=== PATIENT | female | born 1995 | race Caucasian/White ===

== ENCOUNTER 2016-06-25 10:54 | Emergency (ER) | payer OTHER ==
[2016-06-25 11:47] VITALS: BP 96/61; PULSE 58; TEMP 97.8; BMI 23.3
--- NOTE | 2016-06-25 12:34 | PDOC ---
Post Exposure HPI - General Chief Complaint: Blood/Body Fluid Exposure SJR Stated Complaint: BODILY FLUID EXPOSURE Time Seen by Provider: 06/25/16 12:02 - History of Present Illness Initial Comments: 06/25/16 12:30 CHIEF COMPLAINT: 20 yo F with no PMH presents to fast track s/p exposure to bodily fluid at work. 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 She felt a drop of blood to the inner corner of her eye and was not sure if she was exposed to her eye. HISTORY OF PRESENT ILLNESS: No recent travel or sick contacts. PAST MEDICAL HISTORY: Denies past medical history FAMILY HISTORY: Denies SOCIAL HISTORY: Denies tobacco, alcohol, illicit drug use. SURGICAL HISTORY: Denies ALLERGIES: No known drug allergies REVIEW OF SYSTEMS General/Constitutional: Denies fever or chills. Denies weakness, weight change. HEENT: "I might have gotten exposed to blood to my eye." Denies change in vision. Denies ear pain or discharge. Denies sore throat. Skin: "Blood splashed onto my face." PHYSICAL EXAM General Appearance: Well-appearing, appropriately dressed. No apparent distress. HEENT: EOMI, PERRLA, normal ENT inspection, normal voice, TMs normal, pharynx normal. No conjunctival pallor. No photophobia, scleral icterus. Respiratory/Chest: Lungs CTAB. Cardiovascular: RRR. S1, S2. Integumentary: Appropriate color, dry, warm. 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 Fully oriented, alert. Appropriate mood/affect. No appreciable EOM palsy, facial droop or sensory deficit. 06/25/16 12:52 Past History - Past Medical History Allergies/Adverse Reactions: Allergies No Known Allergies Allergy (Verified 06/25/16 11:41) Home Medications: Ambulatory Orders NK [No Known Home Medication] 06/25/16 - Social History Smoking Status: Never smoked *Physical Exam - Vital Signs Last Vital Signs Temp Pulse Resp BP Pulse Ox 97.8 F 58 L 14 96/61 98 06/25/16 11:42 06/25/16 11:42 06/25/16 11:42 06/25/16 11:42 06/25/16 11:42 Medical Decision Making - Medical Decision Making 06/25/16 12:54 20 yo F with no PMH presents to fast track s/p possible exposure to bodily fluid while working. Discussed with OR and investigated source of bodily fluids this patient may have been exposed to. There is no history of any HIV or hepatitis in patient history; however there is no documented evidence the patient is negative either. Given history, risk of infection is very low. Discussed with patient, she states she would not like to start PEP. Will test for Hep C and HIV. Patient to follow up with employee health for results. Patient verbalized understanding and agrees to plan. *DC/Admit/Observation/Transfer Diagnosis at time of Disposition: Exposure to blood or body fluid - Discharge Dispostion Disposition: HOME Condition at time of disposition: Stable Admit: No - Referrals - Patient Instructions Printed Discharge Instructions: How to Handle Body Fluid Exposure -- Healthcare Worker Additional Instructions: Please follow up with employee health with your results. You may call them at extension [phone]. - Post Discharge Activity Work/School Note: Back to Work
[2016-06-25 13:41] LABS: HIV 1 & 2 AB NEGATIVE; HIV 1 AGp24 NEGATIVE
== END 2016-06-25 13:01 | disposition home or self-care (01) ==
LOC: JERFT 10:54
DX: Z77.21 Contact with and (suspected) exposure to potentially hazardous body fluids (principal); W20.8XXA Other cause of strike by thrown, projected or falling object, initial encounter; Y93.89 Activity, other specified; Y92.234 Operating room of hospital as the place of occurrence of the external cause; Y99.0 Civilian activity done for income or pay
CPT/HCPCS: 36415; 80074; 87389; 99281-25

== ENCOUNTER 2017-01-23 17:33 | Emergency (ER) | payer OTHER ==
[2017-01-23 17:39] VITALS: BP 123/78; PULSE 57; TEMP 98.1; BMI 22.1
--- NOTE | 2017-01-23 18:09 | PDOC ---
Post Exposure HPI - General Chief Complaint: Blood/Body Fluid Exposure SJR Stated Complaint: NEEDLE INJURY Time Seen by Provider: 01/23/17 17:47 History Source: Patient Exam Limitations: No Limitations - History of Present Illness Initial Comments: 01/23/17 18:11 This is a 21-year-old woman without significant past medical history who presents to the emergency room status post exposure to blood. 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 Data was unused and the patient was wearing 2 sets of gloves. The outer set of gloves was exposed to blood from the patient having surgery. The patient immediately removed gloves and washed her hands. She did not notice any bleeding or punctive cheryle. The patient with the information of the source patient to the emergency department with her. Timing: just prior to arrival Past History - Past Medical History Allergies/Adverse Reactions: Allergies No Known Allergies Allergy (Verified 01/23/17 17:38) Home Medications: Ambulatory Orders NK [No Known Home Medication] 06/25/16 - Social History Smoking Status: Never smoked Review of Systems - Review of Systems Able to Perform ROS?: Yes Is the patient limited Sammarinese proficient: No Constitutional: No: Symptoms Reported HEENTM: No: Symptoms Reported Respiratory: No: Symptoms reported Cardiac (ROS): No: Symptoms Reported ABD/GI: No: Symptoms Reported : No: Symptoms Reported Musculoskeletal: No: Symptoms Reported Integumentary: Yes: See HPI Neurological: No: Symptoms reported Endocrine: No: Symptoms Reported Hematologic/Lymphatic: No: Symptoms Reported *Physical Exam - Vital Signs Last Vital Signs Temp Pulse Resp BP Pulse Ox 98.1 F 57 L 18 123/78 100 01/23/17 17:37 01/23/17 17:37 01/23/17 17:37 01/23/17 17:37 01/23/17 17:37 - Physical Exam General Appearance: Yes: Appropriately Dressed. No: Apparent Distress HEENT: positive: EOMI, PRO Neck: positive: Trachea midline, Supple Respiratory/Chest: positive: Lungs Clear, Normal Breath Sounds. negative: Respiratory Distress, Accessory Muscle Use Cardiovascular: positive: Regular Rhythm, Regular Rate, S1, S2. negative: Edema , JVD, Murmur Gastrointestinal/Abdominal: positive: Normal Bowel Sounds, Soft. negative: Tender, Organomegaly Musculoskeletal: positive: Normal Inspection. 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 NML intact, Fully Oriented, Alert, Normal Mood/ Affect, Normal Response, Motor Strength 5/5 Post Exposure - ED Protocol - Exposure Treatment Washing/Decontamination: Soap/Water Source Patient HIV Status:: Unknown Is PEP indicated?: No Prophylaxis for HIV discussed?: Yes Prophylaxis given?: No Prophylaxis refused?: No Baseline bloods drawn prophylaxis:(use *Exposure-Hosp Emp): Yes Additional Treatment:: DT - Referrals Employee Referred to Employee Health:: Yes Medical Decision Making - Medical Decision Making 01/23/17 18:14 A: This is a 21-year-old woman without significant past medical history who presents to the emergency room status post exposure to blood. 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 Data was unused and the patient was wearing 2 sets of gloves. The outer set of gloves was exposed to blood from the patient having surgery. The patient immediately removed gloves and washed her hands. She did not notice any bleeding or punctive cheryle. The patient with the information of the source patient to the emergency department with her. no positive cheryle on exam. Unable to express blood or body fluid from any area where she felt needle stick. Review the source patient reveals no HIV, hepatitis C or other infectious disease. P: Collect Baseline CBC, CMP, hCG, HIV, hepatitis panel Contact treating physician of source patient to have HIV collected Source patient hepatitis panel including HCV negative on 01/19 Offer post exposure prophylaxis to patient 01/23/17 21:21 pt is HIV negative. reported to patient. She is refusing PEP and understands to f/u with [facility]. discharge *DC/Admit/Observation/Transfer - Discharge Dispostion Admit: No - Referrals - Patient Instructions Printed Discharge Instructions: How to Handle Body Fluid Exposure -- Healthcare Worker Additional Instructions: Your HIV testing was negative. This does not mean that she had not contracted the disease. It immediately within the past 6 months he may have been exposed to the virus that have not yet converted to show a positive blood test. It is recommended that you have multiple testings for HIV over the next 12 months. You lab work for hepatitis is still pending. You are at a low risk contracted hepatitis. He should follow up with workforce health and safety within the next week for further evaluation. Return to the ER for any fevers, nausea, vomiting, or any other concerns. Thank you very much for choosing us to provide your emergent healthcare needs. - Post Discharge Activity Work/School Note: Back to Work
[2017-01-23 18:35] LABS: BASOPHIL 0.8 % (0-2.0); EOSINOPHIL 1.1 % (0-4.5); MCH 30.8 pg (25.7-33.7); MCHC 33.8 g/dl (32.0-36.0); MEAN CELL VOLUME 91.1 fl (80-96); MEAN PLT VOLUME 9.5 fl (7.5-11.1); NEUTROPHILS 63.4 % (42.8-82.8); PLATELET COUNT 257 K/MM3 (134-434); RDW 13.1 % (11.6-15.6); WHITE BLOOD COUNT 11.1 K/mm3 (4.0-10.0)
[2017-01-23 18:36] LABS: URINE APPEARANCE SLCLOUDY; URINE BILIRUBIN NEGATIVE (NEGATIVE); URINE BLOOD NEGATIVE (NEGATIVE); URINE COLOR LTYELLOW; URINE GLUCOSE (UA) NEGATIVE (NEGATIVE); URINE KETONE NEGATIVE (NEGATIVE); URINE LEUK ESTERASE NEGATIVE (NEGATIVE); URINE NITRITE NEGATIVE (NEGATIVE); URINE PROTEIN NEGATIVE (NEGATIVE); URINE UROBILINOGEN NEGATIVE mg/dL (0.2-1.0)
[2017-01-23 19:03] LABS: ALBUMIN 4.6 g/dl (3.4-5.0); ALK PHOS 74 U/L (45-117); ANION GAP 12 (8-16); BILIRUBIN,TOTAL 0.5 mg/dL (0.2-1.0); CALCIUM 9.7 mg/dL (8.5-10.1); CO2 27 mmol/L (21-32); CREATININE 0.9 mg/dL (0.55-1.02); GLUCOSE,RANDOM 85 mg/dL (74-106); SGOT/AST 23 U/L (15-37); SGPT/ALT 23 U/L (12-78); TOT PROT 8.5 g/dl (6.4-8.2)
[2017-01-23 19:29] LABS: HIV 1 & 2 AB NEGATIVE; HIV 1 AGp24 NEGATIVE
[2017-01-23] MEDS ORDERED: DIPHTH,PERTUSS(ACELL),TET 0.5 ML DISP.SYRIN IM ONE (19:44)
== END 2017-01-23 18:00 | disposition home or self-care (01) ==
LOC: JERFT 17:33
PROC: 3E0234Z Introduction of Serum, Toxoid and Vaccine into Muscle, Percutaneous Approach (ICD-10-PCS; principal; 2017-01-23)
DX: Z77.21 Contact with and (suspected) exposure to potentially hazardous body fluids (principal); W46.1XXA Contact with contaminated hypodermic needle, initial encounter; Y93.F9 Activity, other caregiving; Y92.234 Operating room of hospital as the place of occurrence of the external cause; Y99.0 Civilian activity done for income or pay
CPT/HCPCS: 36415; 80053; 80074; 81003; 85025; 86803; 87389; 99281-25